=== PATIENT | female | born 1980 | race Caucasian/White ===

== ENCOUNTER 2021-10-28 19:05 | Emergency (ER) | payer MEDICAID ==
[~2021-10-28] VITALS: Ht 157.5 cm; Wt 81.6 kg
[2021-10-28 20:26] VITALS: BP 148/79
--- NOTE | 2021-10-28 22:37 | NUR ---
PT W/C ASSISTED WITH NURSE TO BED 4
--- NOTE | 2021-10-28 22:45 | NUR ---
RECEIVED PT IN BED 4 WITH C/O left foot pain x 1 day. Patient reported, had left foot pain and could not move her foot since yesterday, no injury. ASSISTED INTO BED. PT MOANING AND CALLING OUT. 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
--- NOTE | 2021-10-28 23:08 | NUR ---
Dr. Hameed examining patient.
[2021-10-28] MEDS ORDERED: KETOROLAC 30 MG/ML VIAL IVP ONE (23:10)
[2021-10-28] MEDS ORDERED: NACL 0.9% 1,000 ML IV ONE (23:10)
--- NOTE | 2021-10-28 23:13 | NUR ---
LAB AT BEDSIDE
[2021-10-28 23:23] LABS: BASOPHILS # (AUTO) 0.1 K/uL (0.00-0.22); BASOPHILS % (AUTO) 0.6 % (0.0-2.0); EOSINOPHILS # (AUTO) 0.2 K/uL (0-0.4); HEMOGLOBIN 10.7 g/dL (12.0-16.0); LYMPHOCYTES # (AUTO) 1.6 K/uL (2.5-16.5); LYMPHOCYTES % (AUTO) 14.5 % (20.5-51.1); MEAN CORPUSCULAR HEMOGLOBIN 30 pg (27-31); MEAN CORPUSCULAR HGB CONC 34 g/dL (33-37); MONOCYTES # (AUTO) 1.4 K/uL (0.8-1.0); MONOCYTES % (AUTO) 12.5 % (1.7-9.3); NEUTROPHILS % (AUTO) 70.4 % (42.2-75.2); PLATELET COUNT (AUTO) 349 K/uL (140-450); RED BLOOD CELL COUNT(AUTO) 3.56 MIL/uL (4.20-5.40); RED CELL DISTRIBUTION WIDTH 16.3 % (11.6-13.7); WHITE BLOOD COUNT (AUTO) 11.3 K/uL (4.8-10.8)
[2021-10-28 23:40] LABS: ALBUMIN 3.3 g/dL (3.4-5.0); ANION GAP 9.4 (8-16); CARBON DIOXIDE 28.2 mmol/L (21-32); CREATININE 0.5 mg/dL (0.6-1.3); POTASSIUM 3.6 mmol/L (3.5-5.1); TOTAL BILIRUBIN 0.2 mg/dL (0.0-1.0)
--- NOTE | 2021-10-29 00:10 | NUR ---
RETURNED FROM CT
--- NOTE | 2021-10-29 03:00 | NUR ---
AMBULATED TO BR WITH GUARDED GAIT
--- NOTE | 2021-10-29 06:30 | NUR ---
PT IS TO BE TRANSFERRED TO [facility].
--- NOTE | 2021-10-29 06:55 | NUR ---
PT CONSENT SIGNED FOR TRANSFER
--- NOTE | 2021-10-29 07:10 | NUR ---
REPORT CALLED TO AMANDA NDIAYE
[2021-10-29 08:16] VITALS: BP 116/81
--- NOTE | 2021-10-29 08:20 | NUR ---
Patient to be transferred to [facility]. Is being transferred due to HIGHER LEVEL OF CARE. Receiving facility has accepting physician and available space. ER physician has signed transfer form. Patient or responsible alliance party has agreed to transfer and signed form. Patient belongings inventoried and will be sent with patient. Copy of nursing notes, lab reports, Physicians Orders and X-rays to be sent with patient. Report called to ZELDA PATEL BY NIGHT NURSE at receiving facility. [facility] ambulance service has been called for transfer. [facility] AT BEDSIDE FOR TRANSPORT
== END 2021-10-29 08:20 | disposition short-term general hospital (02) ==
LOC: MED 19:05
DX: M25.552 Pain in left hip (principal); Z98.890 Other specified postprocedural states
CPT/HCPCS: 36415; 74176; 80053; 85025; 96361; 96374; 99285; J1885; J7030